=== PATIENT | female | born 1975 | race Caucasian/White ===

== ENCOUNTER 2017-11-17 16:48 | Emergency (ER) | payer BC ==
[~2017-11-17] VITALS: Ht 160 cm; Wt 77.8 kg
[~2017-11-17 16:48] MED LIST: NIFE60TA55 PO; SIMV20TA2 PO
[2017-11-17 16:50] VITALS: TEMP 36.8; Ht 160 cm; Wt 77.8 kg
[2017-11-17] MEDS ORDERED: ASPI81TA28 PO (17:05)
[2017-11-17] MEDS ORDERED: PRED-301 PO (17:05)
[2017-11-17] MEDS ORDERED: CYCL10TA6 PO (17:05)
[2017-11-17] MEDS ORDERED: ACETAMINOPHEN 500 MG TAB PO STA (17:21)
--- NOTE | 2017-11-17 18:18 | DIAGNOSTIC IMAGING REPORT ---
ULTRASOUND LEFT LOWER EXTREMITY VENOUS CLINICAL HISTORY: Left thigh erythema and swelling. History of previous venous ablation. COMPARISON STUDY: No priors. TECHNIQUE: Real-time, grayscale, and color Doppler sonography of the deep veins of the left lower extremity was performed from the inguinal crease to the calf. Compression and augmentation were utilized. FINDINGS: There is no sonographic evidence of deep venous thrombosis identified in the left lower extremity. The common femoral, superficial femoral, and popliteal veins are patent and normally compressible. The greater saphenous vein and the profunda femoris vein at the junction with the common femoral vein are clear. The visualized calf veins are patent. There is a complex nonvascular hypoechoic structure within the subcutaneous fat in the distal medial thigh at the indicated site of interest. This measures 2.2 x 0.6 cm. IMPRESSION: 1. There is no sonographic evidence of deep venous thrombosis identified in the left lower extremity. 2. There is a 2.2 x 0.6 cm complex hypoechoic structure within the subcutaneous fat of the distal thigh at the indicated site of interest. This could represent a chronically thrombosed portion of the greater saphenous vein given the history of previous venous ablation. A tiny hematoma or less likely abscess could also have this appearance. Clinical correlation will be essential. Electronically signed by: Ramses Valles M.D. 11/17/2017 6:16 PM Dictated Date/Time: 11/17/2017 6:14 PM
[2017-11-17] MEDS ORDERED: CEPHALEXIN 500MG HOME PACK 1 EA BTL PO STA ×2 (19:04)
[2017-11-17] MEDS ORDERED: CEPH500C PO (19:06)
--- NOTE | 2017-11-17 19:07 | EMERGENCY ROOM VISIT NOTE ---
History First contact with patient: 17:12 Chief Complaint: LEG PAIN,LEG INJURY Stated Complaint: POSSIBLE BLOOD CLOT IN LEFT LEG History of Present Illness The patient is a 42 year old female who presents to the Emergency Room via private vehicle accompanied by male with complaints of "possible blood clot in left leg". The patient states that yesterday she noticed pain in the left distal medial thigh. This is where she had her previous vein procedure performed. This was secondary to history of varicose veins. She states that now there is a small bump at this region, it is erythematous and tender. She rates the overall pain as a 5/10. She took aspirin prior to arrival. She denies any chest pain or shortness of breath. She notes mild numbness/tingling in the distal extremity. There is minimal swelling. Pain is worse with walking. Review of Systems A complete 6-point Review of Systems was discussed with the patient, with pertinent positives and negatives listed in the History of Present Illness. All remaining Review of Systems questions can be considered negative unless otherwise specified. Past Medical/Surgical History Medical Problems: (1) Calculus Of Kidney (2) Calculus Of Ureter (3) Hypertension Nos (4) Polycystic Ovaries (5) Pure Hypercholesterolem Social History Smoking Status: Never Smoker Alcohol Use: occasionally Marital Status: Occupation Status: employed Current/Historical Medications Scheduled Cephalexin Monohydrate (Keflex), 500 MG PO QID Nifedipine (Procardia Xl Ext Rel), 60 MG PO HS Prednisone (Prednisone), Unknown Dose PO UD Simvastatin (Zocor), 20 MG PO HS Scheduled PRN Aspirin (Aspirin Ec), 162 MG PO DIRECTED PRN for ONE TIME DOSE Cyclobenzaprine Hcl (Flexeril), 10 MG PO DIRECTED PRN for Muscle Spasms Physical Exam Vital Signs Date Time Temp Pulse Resp B/P (MAP) Pulse Ox O2 Delivery O2 Flow Rate FiO2 11/17/17 19:14 85 18 159/94 100 11/17/17 16:50 36.8 86 18 163/100 100 Room Air Physical Exam VITAL SIGNS - Vital signs and nursing notes were reviewed. Stable. Afebrile. GENERAL -42-year-old female appearing her stated age who is in no acute distress. Communicates well with provider and answers questions appropriately. SKIN - No meningeal or petechial rash. Small circular, 2 cm in diameter nonraised erythematous region overlying the medial aspect of the patient's left distal thigh. It is minimally tender. Nonfluctuant. EXTREMITIES - No clubbing or peripheral cyanosis. No pretibial edema present. Neurovascularly intact in the left lower extremity. +5/5 strength noted in UE/ LE bilaterally. Medical Decision & Procedures ER Provider Diagnostic Interpretation: ULTRASOUND LEFT LOWER EXTREMITY VENOUS CLINICAL HISTORY: Left thigh erythema and swelling. History of previous venous ablation. COMPARISON STUDY: No priors. TECHNIQUE: Real-time, grayscale, and color Doppler sonography of the deep veins of the left lower extremity was performed from the inguinal crease to the calf. Compression and augmentation were utilized. FINDINGS: There is no sonographic evidence of deep venous thrombosis identified in the left lower extremity. The common femoral, superficial femoral, and popliteal veins are patent and normally compressible. The greater saphenous vein and the profunda femoris vein at the junction with the common femoral vein are clear. The visualized calf veins are patent. There is a complex nonvascular hypoechoic structure within the subcutaneous fat in the distal medial thigh at the indicated site of interest. This measures 2.2 x 0.6 cm. IMPRESSION: 1. There is no sonographic evidence of deep venous thrombosis identified in the left lower extremity. 2. There is a 2.2 x 0.6 cm complex hypoechoic structure within the subcutaneous fat of the distal thigh at the indicated site of interest. This could represent a chronically thrombosed portion of the greater saphenous vein given the history of previous venous ablation. A tiny hematoma or less likely abscess could also have this appearance. Clinical correlation will be essential. Electronically signed by: Ramses Valles M.D. 11/17/2017 6:16 PM Dictated Date/Time: 11/17/2017 6:14 PM Medications Administered Medications (Trade) Dose Ordered Sig/Leanna Route Start Time Stop Time Status Last Admin Dose Admin Acetaminophen (Tylenol Tab) 500 mg NOW STAT PO 11/17/17 17:21 11/17/17 17:22 DC 11/17/17 17:43 500 MG Cephalexin Monohydrate (Keflex 500MG Home Pack) 1 homepack NOW STAT PO 11/17/17 19:04 11/17/17 19:06 DC 11/17/17 19:11 1 HOMEPACK Cephalexin Monohydrate (Keflex 500MG Home Pack) 1 homepack NOW STAT PO 11/17/17 19:04 11/17/17 19:06 [facility] 11[facility]17[facility]17 [facility] Patient was seen and evaluated as above. She presents to us today with L distal thigh pain. Review was performed of nursing notes and vital signs. After obtaining a thorough history and physical examination the above work up was performed. Ultrasound obtained. No DVT. Clinically I believe it is too early in the patient's process to identify if this is either early infection/ superficial thrombophlebitis/hematoma. For that reason I will recommend warm compresses, elevation, baby aspirin daily and Keflex. She is to follow with the family doctor for further evaluation and management return with worsening. Benefit versus risk of anticoagulation was discussed at this time we will refrain. The patient was educated upon management, had questions answered prior to discharge, and was discharged home in good condition. While here she was given Tylenol for pain, and to Keflex home packs noting the holiday weekend and pharmacy closure. Case was discussed with the attending physician. In the evaluation and treatment of this patient the following differential diagnoses were entertained: DVT, superficial femoral phlebitis, cellulitis, among others. Impression Primary Impression: Leg pain, left Departure Information Dispostion Home / Self-Care Condition GOOD Prescriptions Cephalexin Monohydrate (Keflex) 500 Mg Cap 500 MG PO QID for 8 Days, #32 CAP Prov: Hany Woodson PA-C 11/17/17 Referrals Weston Hansen PA-C (PCP) Patient Instructions My [facility] Additional Instructions You were seen in the emergency department for pain of your left leg. At this time it is either a small abscess, small collection of blood, or a small clot in the superficial veins of your leg. To be safe, I do recommend baby aspirin daily, warm compresses, as well as Keflex. Because of the pharmacies/holiday hours I will give you 2 day supply from here with the remainder via a written prescription. This is for 10 days total. Please call your family doctor for reevaluation early this coming week. Please return with any new/concerning symptoms.
[2017-11-17 19:14] VITALS: BP 159/94; PULSE 85; O2SAT 100
== END 2017-11-17 19:17 | disposition home or self-care (01) ==
LOC: C.EDB 16:49 → C.EDD 19:17
DX: M79.652 Pain in left thigh (principal); L53.9 Erythematous condition, unspecified; I10 Essential (primary) hypertension; E78.00 Pure hypercholesterolemia, unspecified